=== PATIENT | female | born 1980 | race Caucasian/White ===

== ENCOUNTER 2017-11-25 08:05 | Emergency (ER) | payer SELFPAY ==
[~2017-11-25] VITALS: Ht 152.4 cm; Wt 105.0 kg
[2017-11-25 08:09] VITALS: BP 162/86; PULSE 104; RESP 16; TEMP 98.4; O2SAT 97
[2017-11-25 08:28] VITALS: RESP 18; O2SAT 100
[2017-11-25] MEDS ORDERED: SODIUM CHLORIDE 0.9% FLUSH 10 ML FLUSH IV FLUSH PRN (08:30)
[2017-11-25] MEDS ORDERED: SODIUM CHLOR 0.9% 1000 ML INJ 1,000 ML IV ONE (08:45)
[2017-11-25] MEDS ORDERED: ONDANSETRON HCL 4 MG/2 ML VIAL IV PUSH ONE (08:45)
[2017-11-25] MEDS ORDERED: MORPHINE SULFATE 2 MG/ML INJ IV PUSH ONE ×2 (08:45→09:45)
[2017-11-25] MEDS ORDERED: PERC5TAB12 PO ×2 (08:46→09:58)
[2017-11-25] MEDS ORDERED: TAMS5CAP PO (08:46)
[2017-11-25] MEDS ORDERED: CIPR-9 PO (08:46)
--- NOTE | 2017-11-25 08:56 | PD ---
HPI Chief Complaint: Flank/Kidney Pain Time Seen by Provider: 08:35 Travel History International Travel<30 days: No Contact w/Intl Traveler<30days: No Traveled to known affect area: No History of Present Illness HPI 37yo W/F presented to the ED with lower abdominal pain x1day. Pt states that the pain started last night around 10:30pm in her L CVA region and has since migrated downward to her bladder. She reports the pain as waxing and waning, and migration to the lower abdomen. She rates it a 8-9/10. She took a Percocet with the onset of pain, this morning took another along with Flomax, both of which are prescribed by her urologist in [place]. Pt has a significant PMH of recurrent kidney stones, close to 30 in total. Pt reports hematuria, lower abdominal pain, vomiting and nausea. Pt denies abnormal vaginal discharge, burning with urination, fever or diarrhea. Modifying Factors: None Associated Signs & Symptoms: Lower abdominal pain and left flank pain, nausea and vomiting Risk Factors: History of kidney stones PFSH Past Medical History ?: Not LMP: DEPO Social History Tobacco Use: No Allergies-Medications (Allergen,Severity, Reaction): Coded Allergies: NSAIDS (Non-Steroidal Anti-Inflamma (Verified Allergy, Severe, Anaphylaxis , 11/25/17) ketorolac (Verified Allergy, Severe, Anaphylaxis, 11/25/17) Reported Meds & Prescriptions Reported Meds & Active Scripts Active Reported Cipro (Ciprofloxacin HCl) 500 Mg Tab 500 Mg PO BID Flomax (Tamsulosin HCl) 0.4 Mg Cap 0.4 Mg PO HS Percocet (Oxycodone-Acetaminophen) 5-325 mg Tab 1-2 Tab PO Q6H PRN Review of Systems Except as stated in HPI: all other systems reviewed are Neg Genitourinary: Positive: Hematuria, Pelvic Pain, Flank Pain Physical Exam Narrative GENERAL: 37yo well-developed, obese female. Alert and oriented x3. SKIN: Warm and dry. HEAD: Atraumatic. Normocephalic. EYES: Pupils equal and round. No scleral icterus. No injection or drainage. ENT: No nasal bleeding or discharge. L sided facial droop. NECK: Trachea midline. No JVD. CARDIOVASCULAR: Regular rate and rhythm. RESPIRATORY: No accessory muscle use. Clear to auscultation. Breath sounds equal bilaterally. GASTROINTESTINAL: Abdomen soft and nondistended. Hepatic and splenic margins not palpable. L CVA tenderness. Tender lower abdomen. MUSCULOSKELETAL: Extremities without clubbing, cyanosis, or edema. No obvious deformities. NEUROLOGICAL: Awake and alert. No obvious cranial nerve deficits. Motor grossly within normal limits. Normal speech. PSYCHIATRIC: Appropriate mood and affect; insight and judgment normal. Data Data Last Documented VS Vital Signs Date Time Temp Pulse Resp B/P (MAP) Pulse Ox O2 Delivery O2 Flow Rate FiO2 11/25/17 08:28 18 100 Room Air 11/25/17 08:28 97 11/25/17 08:09 98.4 Orders Orders Complete Blood Count With Diff (11/25/17 08:26) Comprehensive Metabolic Panel (11/25/17 08:26) Urinalysis - C+S If Indicated (11/25/17 08:26) Iv Access Insert/Monitor (11/25/17 08:26) Ecg Monitoring (11/25/17 08:26) Oximetry (11/25/17 08:26) Sodium Chloride 0.9% Flush (Ns Flush) (11/25/17 08:30) Sodium Chlor 0.9% 1000 Ml Inj (Ns 1000 M (11/25/17 08:45) Ct Abd/Pel W/O Iv Contrast (11/25/17 08:36) Ed Urine Pregnancytest Poc (11/25/17 08:36) Morphine Inj (Morphine Inj) (11/25/17 08:45) Ondansetron Inj (Zofran Inj) (11/25/17 08:45) Morphine Inj (Morphine Inj) (11/25/17 09:45) Labs Laboratory Tests Test 11/25/17 08:12 11/25/17 08:32 White Blood Count 9.0 TH/MM3 Red Blood Count 3.94 MIL/MM3 Hemoglobin 12.6 GM/DL Hematocrit 37.3 % Mean Corpuscular Volume 94.8 FL Mean Corpuscular Hemoglobin 32.0 PG Mean Corpuscular Hemoglobin Concent 33.8 % Red Cell Distribution Width 14.5 % Platelet Count 290 TH/MM3 Mean Platelet Volume 10.0 FL Neutrophils (%) (Auto) 61.0 % Lymphocytes (%) (Auto) 28.2 % Monocytes (%) (Auto) 8.0 % Eosinophils (%) (Auto) 2.0 % Basophils (%) (Auto) 0.8 % Neutrophils # (Auto) 5.5 TH/MM3 Lymphocytes # (Auto) 2.5 TH/MM3 Monocytes # (Auto) 0.7 TH/MM3 Eosinophils # (Auto) 0.2 TH/MM3 Basophils # (Auto) 0.1 TH/MM3 CBC Comment DIFF FINAL Differential Comment Blood Urea Nitrogen 8 MG/DL Creatinine 0.85 MG/DL Random Glucose 106 MG/DL Total Protein 8.1 GM/DL Albumin 3.7 GM/DL Calcium Level 8.9 MG/DL Alkaline Phosphatase 67 U/L Aspartate Amino Transf (AST/SGOT) 13 U/L Alanine Aminotransferase (ALT/SGPT) 26 U/L Total Bilirubin 0.2 MG/DL Sodium Level 139 MEQ/L Potassium Level 3.3 MEQ/L Chloride Level 105 MEQ/L Carbon Dioxide Level 26.1 MEQ/L Anion Gap 8 MEQ/L Estimat Glomerular Filtration Rate 75 ML/MIN Urine Color YELLOW Urine Turbidity HAZY Urine pH 6.0 Urine Specific [place] 1.023 Urine Protein TRACE mg/dL Urine Glucose (UA) NEG mg/dL Urine Ketones NEG mg/dL Urine Occult Blood MOD Urine Nitrite NEG Urine Bilirubin NEG Urine Urobilinogen LESS THAN 2.0 MG/DL Urine Leukocyte Esterase NEG Urine RBC /hpf Urine WBC 3 /hpf Urine Squamous Epithelial Cells 4 /hpf Urine Calcium Oxalate Crystals MANY /hpf Urine Bacteria RARE /hpf Urine Mucus MANY /lpf Microscopic Urinalysis Comment CULT NOT INDICATED MDM Medical Decision Making Medical Screen Exam Complete: Yes Emergency Medical Condition: Yes Medical Record Reviewed: Yes Interpretation(s) Laboratory Tests Test 11/25/17 08:12 11/25/17 08:32 Red Blood Count 3.94 MIL/MM3 (4.00-5.30) Aspartate Amino Transf (AST/SGOT) 13 U/L (15-37) Potassium Level 3.3 MEQ/L (3.5-5.1) Estimat Glomerular Filtration Rate 75 ML/MIN (>89) Urine Turbidity HAZY (CLEAR) Urine Occult Blood MOD (NEG) Urine Calcium Oxalate Crystals MANY /hpf (NONE) Urine Bacteria RARE /hpf (NONE) Urine Mucus MANY /lpf (OCC) Last 24 hours Impressions Abdomen/Pelvis CT 11/25/17 0836 Signed Impressions: Service Date/Time: Saturday, November 25, 2017 08:54 - CONCLUSION: Multiple small renal stones in both kidneys. There is no hydronephrosis or perinephric straining to suggest obstruction. Multiple phleboliths in the pelvis on both the right and left. One of these could easily be a tiny 1-2 mm stone, without significant obstruction. Danilo Heck MD FACR Differential Diagnosis Renal colic versus pyelonephritis versus diverticulitis versus gastroenteritis versus musculoskeletal Narrative Course CAT scan did not show obvious signs of hydronephrosis but the patient has multiple small kidney stones, likely renal colic considering symptoms. UA did not show significant signs of UTI. There was no signs of other acute intra- abdominal processes. Patient was given several doses of morphine and Zofran in the ER for pain control. She did not have any further vomiting episodes in the ER. At this point, my plan would be to release the patient with further symptomatic pain control and she should follow-up with her urologist regarding this issue. Return for any worsening in pain or new symptoms as needed. The plan has been discussed with her and she states understanding. Diagnosis Primary Impression: Renal colic on left side Med/Other Pt SpecificInfo: Prescription(s) given Scripts Ondansetron Odt (Zofran Odt) 4 Mg Tab 4 MG SL Q6HR Y for Nausea/Vomiting, #7 TAB 0 Refills Prov: Bo Curiel MD 11/25/17 Oxycodone-Acetaminophen (Percocet) 5-325 mg Tab 1-2 TAB PO Q6H Y for PAIN, #10 TAB 0 Refills Prov: Bo Curiel MD 11/25/17 Disposition: 01 DISCHARGE HOME Condition: Stable Bo Curiel MD Nov 25, 2017 08:56
[2017-11-25 08:59] LABS: AUTOMATED NEUTROPHIL # 5.5 TH/MM3 (1.8-7.7); BASOPHIL # 0.1 TH/MM3 (0-0.2); BASOPHIL % 0.8 % (0.0-2.0); EOSINOPHIL # 0.2 TH/MM3 (0-0.4); HEMATOCRIT 37.3 % (35.0-46.0); HEMOGLOBIN 12.6 GM/DL (11.6-15.3); LYMPH % 28.2 % (9.0-44.0); LYMPHOCYTE # 2.5 TH/MM3 (1.0-4.8); MEAN CELL VOLUME 94.8 FL (80.0-100.0); MEAN CORPUSCULAR HGB CONC 33.8 % (32.0-36.0); MONOCYTE # 0.7 TH/MM3 (0-0.9); PLATELET COUNT 290 TH/MM3 (150-450); RED BLOOD COUNT 3.94 MIL/MM3 (4.00-5.30); RED CELL DISTRIBUTION WIDTH 14.5 % (11.6-17.2)
[2017-11-25 09:07] LABS: BACTERIA, URINE RARE /hpf; BILIRUBIN, URINE NEG (NEG); BLOOD, URINE MOD (NEG); CALCIUM OXALATE CRYSTALS,URINE MANY /hpf; GLUCOSE,URINE NEG (NEG); KETONE, URINE NEG (NEG); MUCUS URINE MANY /lpf (OCC); NITRITE,URINE NEG (NEG); SQUAMOUS EPITHELIAL CELL URINE 4 /hpf (0-5); URINE COLOR YELLOW (YELLW/STRAW); URINE LEUKOCYTE ESTERASE NEG (NEG)
[2017-11-25 09:18] LABS: ALBUMIN 3.7 GM/DL (3.4-5.0); AST (GOT) 13 U/L (15-37); BICARBONATE 26.1 MEQ/L (21.0-32.0); BLOOD UREA NITROGEN 8 MG/DL (7-18); CALCIUM 8.9 MG/DL (8.5-10.1); CHLORIDE 105 MEQ/L (98-107); CREATININE 0.85 MG/DL (0.50-1.00); GLOMERULAR FILTRATION RATE 75 ML/MIN (>89); GLUCOSE,RANDOM 106 MG/DL (74-106); SODIUM (NA) 139 MEQ/L (136-145)
[2017-11-25 09:19] LABS: ALT (GPT) 26 U/L (10-53)
[2017-11-25 09:21] LABS: ALKALINE PHOSPHATASE 67 U/L (45-117); TOTAL BILIRUBIN ADULT 0.2 MG/DL (0.2-1.0); TOTAL PROTEIN 8.1 GM/DL (6.4-8.2)
--- NOTE | 2017-11-25 09:26 | RADRPT ---
EXAM DATE/TIME: 11/25/2017 08:54 [facility] COMPARISON: No previous studies available for comparison. INDICATIONS : Left lower quadrant pain. Evaluate for renal stone. ORAL CONTRAST: No oral contrast ingested. RADIATION DOSE: 33.87 CTDIvol (mGy) ; Patient body habitus MEDICAL HISTORY : None SURGICAL HISTORY : None. ENCOUNTER: Initial ACUITY: 3 days PAIN SCALE: 8/10 LOCATION: Left lower quadrant TECHNIQUE: Volumetric scanning of the abdomen and pelvis was performed. Using automated exposure control and ad justment of the mA and/or kV according to patient size, radiation dose was kept as low as reasonably achievable to obtain optimal diagnostic quality images. DICOM format image data is available electro nically for review and comparison. FINDINGS: Lung base is are clear. The liver, spleen, pancreas and adrenals unremarkable Surgical clips gallbladder fossa Scattered small 1-2 mm nonobstructing stones right kidney Similar scattered small 1-2 mm stones left kidney There is no evidence for obstruction There are no calcifications along the expected course of either ureter Phleboliths are seen in the pelvis Scattered diverticuli in sigmoid colon. No inflammatory changes Small midline hernia containing only fat Review of bone windows reveals only degenerative changes. CONCLUSION: Multiple small renal stones in both kidneys. There is no hydronephrosis or perinephr ic straining to suggest obstruction. Multiple phleboliths in the pelvis on both the right and left. One of these could easily be a tiny 1 -2 mm stone, without significant obstruction. Danilo Heck MD FACR on November 25, 2017 at 9:21 Board Certified Radiologist. This report was verified electronically.
[2017-11-25] MEDS ORDERED: ZOFR4TAB3 SL (09:58)
== END 2017-11-25 10:15 | disposition home or self-care (01) ==
LOC: NEPC 08:05
DX: N20.0 Calculus of kidney (principal)
CPT/HCPCS: 74176; 80053; 81001; 84703; 85025; 96374; 96375; 96376; 99285; J2270; J2405; J7030

== ENCOUNTER 2017-12-22 09:11 | Emergency (ER) | payer SELFPAY ==
[~2017-12-22] VITALS: Ht 152.4 cm; Wt 100.0 kg
[~2017-12-22 09:11] MED LIST: CIPR-9 PO; PERC5TAB12 PO; TAMS5CAP PO; ZOFR4TAB3 SL
[2017-12-22 09:13] VITALS: BP 169/113; PULSE 106; RESP 18; TEMP 99.5; O2SAT 98
[2017-12-22] MEDS ORDERED: SODIUM CHLOR 0.9% 1000 ML INJ 1,000 ML IV SCH (09:47)
--- NOTE | 2017-12-22 09:56 | PD ---
HPI Chief Complaint: Complaint Time Seen by Provider: 09:47 Travel History International Travel<30 days: No Contact w/Intl Traveler<30days: No Traveled to known affect area: No History of Present Illness HPI The patient is a 37-year-old female who presents to the emergency department for right flank pain. The patient states she has a history kidney stones, was in [place] 2 weeks ago and had a stent placed in the right kidney. The patient states the stents was sticking out of the urethra earlier this morning and she subsequently wiped, pulling the stent free. The patient states the pain is located in the right side, intermittent, colic, and sharp. She does complain of hematuria with clots. The patient states she recently moved to the local area because her changed jobs. She denies any current nausea, vomiting, or diarrhea. PFSH Past Medical History Narrative Medical Nephrolithiasis ?: Not LMP: 3 YEARS Past Surgical History Narrative Surgical Stent placement Social History Tobacco Use: No Allergies-Medications (Allergen,Severity, Reaction): Coded Allergies: NSAIDS (Non-Steroidal Anti-Inflamma (Verified Allergy, Severe, Anaphylaxis , 11/25/17) ketorolac (Verified Allergy, Severe, Anaphylaxis, 11/25/17) Reported Meds & Prescriptions Reported Meds & Active Scripts Active Tramadol (Tramadol HCl) 50 Mg Tab 50 Mg PO Q6H PRN Reported Flomax (Tamsulosin HCl) 0.4 Mg Cap 0.4 Mg PO HS Percocet (Oxycodone-Acetaminophen) 5-325 mg Tab 1-2 Tab PO Q6H PRN Review of Systems Except as stated in HPI: all other systems reviewed are Neg General / Constitutional: No: Fever Cardiovascular: No: Chest Pain or Discomfort Respiratory: No: Shortness of Breath Gastrointestinal: No: Nausea, Vomiting Genitourinary: Positive: Hematuria, Flank Pain Physical Exam Narrative GENERAL: Awake, alert, nontoxic-appearing 37-year-old female who appears her stated age and is in no acute respiratory distress. SKIN: Focused skin assessment warm/dry. NECK: Trachea midline. No JVD. CARDIOVASCULAR: Regular rate and rhythm. No murmur appreciated. RESPIRATORY: No accessory muscle use. Clear to auscultation. Breath sounds equal bilaterally. GASTROINTESTINAL: Abdomen soft, obese, no rebound tenderness. Back: No CVA tenderness. MUSCULOSKELETAL: No obvious deformities. No clubbing. No cyanosis. No edema. NEUROLOGICAL: Awake and alert. No obvious cranial nerve deficits. Motor grossly within normal limits. Normal speech. PSYCHIATRIC: Appropriate mood and affect; insight and judgment normal. Data Data Last Documented VS Vital Signs Date Time Temp Pulse Resp B/P (MAP) Pulse Ox O2 Delivery O2 Flow Rate FiO2 12/22/17 13:00 98.0 78 16 146/77 (100) 98 Room Air Orders Orders Complete Blood Count With Diff (12/22/17 09:47) Comprehensive Metabolic Panel (12/22/17 09:47) Urinalysis - C+S If Indicated (12/22/17 09:47) Ct Abd/Pel W/O Iv Contrast (12/22/17 09:47) Iv Access Insert/Monitor (12/22/17 09:47) Ecg Monitoring (12/22/17 09:47) Oximetry (12/22/17 09:47) Morphine Inj (Morphine Inj) (12/22/17 10:00) Ondansetron Inj (Zofran Inj) (12/22/17 10:00) Sodium Chlor 0.9% 1000 Ml Inj (Ns 1000 M (12/22/17 09:47) Sodium Chloride 0.9% Flush (Ns Flush) (12/22/17 10:00) Ed Discharge Order (12/22/17 12:00) Labs Laboratory Tests Test 12/22/17 10:05 12/22/17 10:30 White Blood Count 7.7 TH/MM3 Red Blood Count 4.30 MIL/MM3 Hemoglobin 13.7 GM/DL Hematocrit 40.2 % Mean Corpuscular Volume 93.6 FL Mean Corpuscular Hemoglobin 31.9 PG Mean Corpuscular Hemoglobin Concent 34.1 % Red Cell Distribution Width 14.5 % Platelet Count 279 TH/MM3 Mean Platelet Volume 10.7 FL Neutrophils (%) (Auto) 67.4 % Lymphocytes (%) (Auto) 25.0 % Monocytes (%) (Auto) 5.0 % Eosinophils (%) (Auto) 2.1 % Basophils (%) (Auto) 0.5 % Neutrophils # (Auto) 5.2 TH/MM3 Lymphocytes # (Auto) 1.9 TH/MM3 Monocytes # (Auto) 0.4 TH/MM3 Eosinophils # (Auto) 0.2 TH/MM3 Basophils # (Auto) 0.0 TH/MM3 CBC Comment DIFF FINAL Differential Comment Blood Urea Nitrogen 8 MG/DL Creatinine 0.84 MG/DL Random Glucose 105 MG/DL Total Protein 8.3 GM/DL Albumin 3.8 GM/DL Calcium Level 9.8 MG/DL Alkaline Phosphatase 61 U/L Aspartate Amino Transf (AST/SGOT) 20 U/L Alanine Aminotransferase (ALT/SGPT) 20 U/L Total Bilirubin 0.3 MG/DL Sodium Level 135 MEQ/L Potassium Level 3.9 MEQ/L Chloride Level 103 MEQ/L Carbon Dioxide Level 23.5 MEQ/L Anion Gap 9 MEQ/L Estimat Glomerular Filtration Rate 76 ML/MIN Urine Color YELLOW Urine Turbidity HAZY Urine pH 7.0 Urine Specific [place] 1.018 Urine Protein NEG mg/dL Urine Glucose (UA) NEG mg/dL Urine Ketones NEG mg/dL Urine Occult Blood LARGE Urine Nitrite NEG Urine Bilirubin NEG Urine Urobilinogen LESS THAN 2.0 MG/DL Urine Leukocyte Esterase TRACE Urine RBC 104 /hpf Urine WBC 7 /hpf Urine Squamous Epithelial Cells 4 /hpf Urine Bacteria OCC /hpf Urine Hyaline Casts 3 /lpf Urine Mucus FEW /lpf Microscopic Urinalysis Comment CULT NOT INDICATED MDM Medical Decision Making Medical Screen Exam Complete: Yes Emergency Medical Condition: Yes Medical Record Reviewed: Yes Interpretation(s) Last Impressions Abdomen/Pelvis CT 12/22/17 [id number] Signed Impressions: Service Date/Time: December 10:20 - CONCLUSION: 1. Multiple punctate renal calculi bilaterally. These are nonobstructing. No obvious hydronephrosis or nephrolithiasis. A few phleboliths are seen in the deep pelvis, however. 2. Reported history of a right ureteric stent. No stent is identified on the current exam, however. 3. Postsurgical changes including cholecystectomy and appendectomy. 4. 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 Some facet diastases rightward at L4-5. 5. Vacuum joint phenomenon in the SI joints bilaterally. Dayday Lopez MD Laboratory Tests Test 12/22/17 10:05 12/22/17 10:30 White Blood Count 7.7 TH/MM3 Red Blood Count 4.30 MIL/MM3 Hemoglobin 13.7 GM/DL Hematocrit 40.2 % Mean Corpuscular Volume 93.6 FL Mean Corpuscular Hemoglobin 31.9 PG Mean Corpuscular Hemoglobin Concent 34.1 % Red Cell Distribution Width 14.5 % Platelet Count 279 TH/MM3 Mean Platelet Volume 10.7 FL Neutrophils (%) (Auto) 67.4 % Lymphocytes (%) (Auto) 25.0 % Monocytes (%) (Auto) 5.0 % Eosinophils (%) (Auto) 2.1 % Basophils (%) (Auto) 0.5 % Neutrophils # (Auto) 5.2 TH/MM3 Lymphocytes # (Auto) 1.9 TH/MM3 Monocytes # (Auto) 0.4 TH/MM3 Eosinophils # (Auto) 0.2 TH/MM3 Basophils # (Auto) 0.0 TH/MM3 CBC Comment DIFF FINAL Differential Comment Blood Urea Nitrogen 8 MG/DL Creatinine 0.84 MG/DL Random Glucose 105 MG/DL Total Protein 8.3 GM/DL Albumin 3.8 GM/DL Calcium Level 9.8 MG/DL Alkaline Phosphatase 61 U/L Aspartate Amino Transf (AST/SGOT) 20 U/L Alanine Aminotransferase (ALT/SGPT) 20 U/L Total Bilirubin 0.3 MG/DL Sodium Level 135 MEQ/L Potassium Level 3.9 MEQ/L Chloride Level 103 MEQ/L Carbon Dioxide Level 23.5 MEQ/L Anion Gap 9 MEQ/L Estimat Glomerular Filtration Rate 76 ML/MIN Urine Color YELLOW Urine Turbidity HAZY Urine pH 7.0 Urine Specific [place] 1.018 Urine Protein NEG mg/dL Urine Glucose (UA) NEG mg/dL Urine Ketones NEG mg/dL Urine Occult Blood LARGE Urine Nitrite NEG Urine Bilirubin NEG Urine Urobilinogen LESS THAN 2.0 MG/DL Urine Leukocyte Esterase TRACE Urine RBC 104 /hpf Urine WBC 7 /hpf Urine Squamous Epithelial Cells 4 /hpf Urine Bacteria OCC /hpf Urine Hyaline Casts 3 /lpf Urine Mucus FEW /lpf Microscopic Urinalysis Comment CULT NOT INDICATED Differential Diagnosis Differential diagnosis includes nephrolithiasis, hydronephrosis, UTI, pyelonephritis, malingering, drug-seeking behavior. Narrative Course IV was established, labs are drawn and sent, and the patient was placed on cardiac telemetry monitoring and continuous pulse oximetry monitoring. The patient was administered morphine, Zofran, and IV fluids. She is allergic to Toradol and nonsteroidal anti-inflammatories, states she had an allergic reaction when she was a child. We did perform an E Force on the patient. The patient had a prescription for [facility] on December 14, [facility] on December 07, [place] on November 25, [place] on November 18, [facility] on November 09, [facility] on October 26, 2017, to see me [place] on September 26, for moderate L1 September 14, 2017, and continuing like this 2016 with prescriptions that range from [place] to [place] to [facility] to [facility]. I had a discussion with the patient regarding possible narcotic dependency and/or abuse. The patient does not believe she has a narcotic problem, I did address these concerns with the patient as these prescriptions are from multiple prescribers and filled in multiple different locations. Noncontrast CT the abdomen and pelvis was performed to evaluate for renal stone and/or hydronephrosis. CT is negative for any hydronephrosis or obvious stone. The patient's pain was improved. She will be discharged home on tramadol, is advised to follow-up with her urologist. Diagnosis Primary Impression: Renal colic on right side Patient Instructions: General Instructions Additional Instructions: Please provide the patient a copy of her CT results and lab results at discharge. Follow-up with her primary physician and urologist. Tramadol as needed for pain. Med/Other Pt SpecificInfo: Prescription(s) given Scripts Tramadol (Tramadol) 50 Mg Tab 50 MG PO Q6H Y for PAIN, #10 TAB 0 Refills Prov: Kvng Torre MD 12/22/17 Disposition: DISCHARGE HOME Condition: Stable Kvng Torre MD Dec 22, 2017 09:56
[2017-12-22] MEDS ORDERED: MORPHINE SULFATE 4 MG/ML INJ IV PUSH ONE (10:00)
[2017-12-22] MEDS ORDERED: SODIUM CHLORIDE 0.9% FLUSH 10 ML FLUSH IV FLUSH PRN (10:00)
[2017-12-22] MEDS ORDERED: ONDANSETRON HCL 4 MG/2 ML VIAL IVP ONE (10:00)
[2017-12-22 10:39] LABS: AUTOMATED NEUTROPHIL # 5.2 TH/MM3 (1.8-7.7); BASOPHIL % 0.5 % (0.0-2.0); EOSINOPHIL # 0.2 TH/MM3 (0-0.4); EOSINOPHIL % 2.1 % (0.0-4.0); HEMATOCRIT 40.2 % (35.0-46.0); HEMOGLOBIN 13.7 GM/DL (11.6-15.3); LYMPHOCYTE # 1.9 TH/MM3 (1.0-4.8); MEAN CELL VOLUME 93.6 FL (80.0-100.0); MEAN CORPUSCULAR HEMOGLOBIN 31.9 PG (27.0-34.0); MEAN CORPUSCULAR HGB CONC 34.1 % (32.0-36.0); MEAN PLATELET VOLUME 10.7 FL (7.0-11.0); MONOCYTE # 0.4 TH/MM3 (0-0.9); NEUT % 67.4 % (16.0-70.0); PLATELET COUNT 279 TH/MM3 (150-450); RED CELL DISTRIBUTION WIDTH 14.5 % (11.6-17.2); WHITE BLOOD COUNT 7.7 TH/MM3 (4.0-11.0)
[2017-12-22 10:44] LABS: ALBUMIN 3.8 GM/DL (3.4-5.0); AST (GOT) 20 U/L (15-37); BICARBONATE 23.5 MEQ/L (21.0-32.0); BLOOD UREA NITROGEN 8 MG/DL (7-18); CALCIUM 9.8 MG/DL (8.5-10.1); CHLORIDE 103 MEQ/L (98-107); CREATININE 0.84 MG/DL (0.50-1.00); GLOMERULAR FILTRATION RATE 76 ML/MIN (>89); GLUCOSE,RANDOM 105 MG/DL (74-106); SODIUM (NA) 135 MEQ/L (136-145)
[2017-12-22 10:47] LABS: ALKALINE PHOSPHATASE 61 U/L (45-117); ALT (GPT) 20 U/L (10-53); TOTAL BILIRUBIN ADULT 0.3 MG/DL (0.2-1.0); TOTAL PROTEIN 8.3 GM/DL (6.4-8.2)
[2017-12-22 10:50] VITALS: BP 144/97; PULSE 90; RESP 18; O2SAT 97
--- NOTE | 2017-12-22 10:54 | RADRPT ---
EXAM DATE/TIME: 12/22/2017 10:20 [facility] COMPARISON: CT ABDOMEN & PELVIS W/O CONTRAST, November 25, 2017, 8:54. INDICATIONS : Right ureteral stent placed 2 weeks ago. Renal stent dislodgement. ORAL CONTRAST: No oral contrast ingested. RADIATION DOSE: 15.62 CTDIvol (mGy) MEDICAL HISTORY : Renal calculi. SURGICAL HISTORY : Right ureteral stent ENCOUNTER: Initial ACUITY: 1 day PAIN SCALE: 6/10 LOCATION: Right flank TECHNIQUE: Volumetric scanning of the abdomen and pelvis was performed. Using automated exposure control and ad justment of the mA and/or kV according to patient size, radiation dose was kept as low as reasonably achievable to obtain optimal diagnostic quality images. DICOM format image data is available electro nically for review and comparison. FINDINGS: LOWER LUNGS: The visualized lower lungs are clear. LIVER: Homogeneous density without lesion. There is no dilation of the biliary tree. Patient has had a chol ecystectomy. SPLEEN: Normal size without lesion. PANCREAS: Within normal limits. KIDNEYS: Multiple nonobstructing subcentimeter calculi are seen in both kidneys. No hydronephrosis or nephroli thiasis. Number of phleboliths in the deep pelvis. Reported history of a right ureteric stent but non e is identified on the current exam. No change from prior. ADRENAL GLANDS: Within normal limits. VASCULAR: There is no aortic aneurysm. BOWEL/MESENTERY: The stomach, small bowel, and colon demonstrate no acute abnormality. There is no free intraperitone al air or fluid. Surgical clips at the base of the cecum are characteristic of prior appendectomy. ABDOMINAL WALL: Within normal limits. RETROPERITONEUM: There is no lymphadenopathy. BLADDER: No wall thickening or mass. REPRODUCTIVE: Within normal limits. INGUINAL: There is no lymphadenopathy or hernia. MUSCULOSKELETAL: Degenerative changes of the facet articulations and lower lumbar spine and lumbosacral junction, righ t greater than left. There appears to be some diastases of the articulating facets rightward at L4-5. Vacuum joint phenomenon in the SI joints bilaterally. CONCLUSION: 1. Multiple punctate renal calculi bilaterally. These are nonobstructing. No obvious hydronephrosis o r nephrolithiasis. A few phleboliths are seen in the deep pelvis, however. 2. Reported history of a right ureteric stent. No stent is identified on the current exam, however. 3. Postsurgical changes including cholecystectomy and appendectomy. 4. 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 Some facet diastases rightward at L4-5. 5. Vacuum joint phenomenon in the SI joints bilaterally. Dayday Lopez MD on December 22, 2017 at 10:30 Board Certified Radiologist. This report was verified electronically.
[2017-12-22 11:25] LABS: BACTERIA, URINE OCC /hpf; BILIRUBIN, URINE NEG (NEG); BLOOD, URINE LARGE (NEG); GLUCOSE,URINE NEG (NEG); HYALINE CAST, URINE 3 /lpf (RARE); KETONE, URINE NEG (NEG); MUCUS URINE FEW /lpf (OCC); NITRITE,URINE NEG (NEG); SQUAMOUS EPITHELIAL CELL URINE 4 /hpf (0-5); URINE COLOR YELLOW (YELLW/STRAW); URINE LEUKOCYTE ESTERASE TRACE (NEG)
[2017-12-22] MEDS ORDERED: TRAM50TA PO (11:52)
[2017-12-22 13:00] VITALS: BP 146/77; PULSE 78; RESP 16; TEMP 98; O2SAT 98
== END 2017-12-22 13:18 | disposition home or self-care (01) ==
LOC: NEPE 09:11
DX: N20.0 Calculus of kidney (principal)
CPT/HCPCS: 74176; 80053; 81001; 85025; 96374; 96375; 99284; J2270; J2405; J7030